=== PATIENT | female | born 1970 | race African-American/Black ===

== ENCOUNTER 2018-08-22 09:48 | Observation (INO) ==
[2018-08-22] MEDS ORDERED: ONDANSETRON 4 MG/2 ML VIAL IV STA (10:05)
[2018-08-22] MEDS ORDERED: MORPHINE 4 MG/1 ML VIAL IV STA (10:05)
[2018-08-22] MEDS ORDERED: ASPIRIN 325 MG TABLET PO STA (10:05)
[2018-08-22] MEDS ORDERED: FUROSEMIDE 20 MG/2 ML VIAL IV STA (10:05)
[2018-08-22] MEDS ORDERED: hydrALAZINE 20 MG/1 ML VIAL IV STA (10:05)
[2018-08-22] MEDS ORDERED: NITROGLYCERIN 2% OINT 1 INCH/GM PACK TOP STA (10:05)
[2018-08-22 10:32] LABS: Basophils % 0.8 % (0.0-0.8); Eosinophils # 0.2 10*3/uL (0.0-0.87); Eosinophils % 3.9 % (0.00-10.9); Hemoglobin 14.4 GM/DL (12.0-16.0); Immature Granulocytes % 0.2 %; Immature Granulocytes Absolute 0.01 #; Lymphocytes # 1.7 10*3/uL (1.4-4.0); Lymphocytes % 33.3 % (21.3-54.2); Mean Corpuscular HGB Conc 30.6 GM/DL (32-36); Mean Corpuscular Volume 82.6 FL (87-102); Mean Platelet Volume 9.4 FL (9.6-12.0); Monocytes % 7.8 % (1.7-12.7); Platelet Count 311 T/CUMM (130-400); Red Blood Count 5.69 MC/CUMM (3.8-5.5); Red Cell Distribution Width 12.8 % (9.3-17.3); White Blood Count 5.1 T/CUMM (4-12)
[2018-08-22 10:44] LABS: PT Patient Result 10.8 SECS
[2018-08-22 10:51] LABS: Albumin 4.3 G/DL (3.4-5.0); Bilirubin,Total 1.1 MG/DL (0.2-1.0); Calcium 9.2 MG/DL (8.5-10.1); Osmolality,Calculated 282.1 MOS/KG (273-304); Total Protein 7.7 G/DL (6.4-8.3)
[2018-08-22] MEDS ORDERED: LABETALOL 20 MG/4 ML SYRINGE IV ONE (11:01)
[2018-08-22] MEDS ORDERED: LABETALOL 20 MG/4 ML SYRINGE IV STA (11:01)
[2018-08-22] MEDS ORDERED: ACETAMINOPHEN 325 MG TABLET PO PRN (12:27)
[2018-08-22] MEDS ORDERED: ONDANSETRON 4 MG/2 ML VIAL IV PRN (12:27)
[2018-08-22] MEDS: hydrALAZINE 20 MG/1 ML VIAL IV PRN (16:37)
[2018-08-22] MEDS: CARVEDILOL 3.125 MG TABLET PO SCH (16:37)
[2018-08-23 04:37] LABS: Apearance,Urine CLEAR (Clear); Bacteria,Urine Occasional /HPF (Few); Bilirubin,Urine Negative (Negative); Blood, Urine Negative (Negative); Glucose,Urine (UA) Negative (Negative); Ketones,Urine Negative (Negative); Mucus,Urine Occasional /LPF (Occasional); Nitrite,Urine Negative (Negative); Protein,Urine Negative; Squamous Epithelial Cell,Urine Occasional /HPF (0-10); Urine Color Yellow (Yellow); Urine Specific Gravity 1.009 (1.001-1.035); Urine Urobilinogen < 2.0 EU/DL (0.2-1.0); WBC,Urine 2 /HPF (0-6)
[2018-08-23 04:59] LABS: Basophils # 0.1 10*3/uL (0.0-0.2); Basophils % 0.6 % (0.0-0.8); Eosinophils # 0.1 10*3/uL (0.0-0.87); Eosinophils % 1.2 % (0.00-10.9); Hematocrit 42.9 VOL% (35.7-47.0); Hemoglobin 13.5 GM/DL (12.0-16.0); Immature Granulocytes % 0.3 %; Immature Granulocytes Absolute 0.03 #; Lymphocytes # 2.5 10*3/uL (1.4-4.0); Lymphocytes % 28.1 % (21.3-54.2); Mean Corpuscular HGB Conc 31.5 GM/DL (32-36); Mean Corpuscular Volume 82.2 FL (87-102); Mean Platelet Volume 10.1 FL (9.6-12.0); Monocytes % 8.8 % (1.7-12.7); Platelet Count 306 T/CUMM (130-400); Red Blood Count 5.22 MC/CUMM (3.8-5.5); Red Cell Distribution Width 13.1 % (9.3-17.3); White Blood Count 9.1 T/CUMM (4-12)
[2018-08-23] MEDS: hydrALAZINE 20 MG/1 ML VIAL IV PRN (05:15)
[2018-08-23 05:32] LABS: Calcium 9.1 MG/DL (8.5-10.1); Osmolality,Calculated 280.4 MOS/KG (273-304); Thyroid Stimulating Hormone 0.46 uIU/ml (0.358-3.74)
[2018-08-23] MEDS: LOSARTAN 25 MG TABLET PO SCH (08:41)
[2018-08-23] MEDS: PANTOPRAZOLE 40 MG TABLET PO SCH (08:41)
[2018-08-23] MEDS: CARVEDILOL 6.25 MG TABLET PO SCH ×2 (08:42→16:23)
[2018-08-23] MEDS: POTASSIUM CHLORIDE 20 MEQ TABLET PO PRN ×3 (08:42→23:49)
[2018-08-23] MEDS ORDERED: amLODIPine 5 MG TABLET PO SCH (09:00)
[2018-08-23] MEDS: CARVEDILOL 3.125 MG TABLET PO SCH (09:14)
[2018-08-24] MEDS: POTASSIUM CHLORIDE 20 MEQ TABLET PO PRN ×2 (02:42→05:24)
[2018-08-24] MEDS: hydrALAZINE 20 MG/1 ML VIAL IV PRN (05:10)
[2018-08-24] MEDS: PANTOPRAZOLE 40 MG TABLET PO SCH (08:40)
[2018-08-24] MEDS: LOSARTAN 25 MG TABLET PO SCH (08:40)
[2018-08-24] MEDS: CARVEDILOL 6.25 MG TABLET PO SCH (08:40)
[2018-08-24] MEDS ORDERED: POTASSIUM CHLORIDE 20 MEQ TABLET PO ONE (10:20)
[2018-08-24 13:12] VITALS: BP 182/109
== END 2018-08-24 14:42 | disposition home or self-care (01) ==
LOC: EDUNIT# → EDBD → N.ED 09:48 → N.EDINP 09:48 → N.TELEN 13:36
PROVIDERS: ADMIT Internal Medicine; ATTEND Internal Medicine